=== PATIENT | female | born 1965 | race Two or more races ===

== ENCOUNTER → 2020-12-12 | Outpatient (CLI) | payer BC ==
[2020-04-14 13:21] VITALS: BP 137/57
[~2020-12-12] MED LIST: ASPI-630 PO; CALC-77 PO; CRESTOR40 MG PO; FLAX10003 PO; HYDR-2145 PO; HYDR12.58 PO; LACT1CAP6 PO; LOSA-73 PO; NIAC500T PO; OMEG500C PO; PRAS10TA9 PO; SIMV40TA18 PO
--- NOTE | 2020-12-12 09:18 | RAD ---
Carotid artery duplex ultrasound study without comparison for carotid bruit. Technique an findings: Real-time grayscale and color spectral Doppler evaluation of the carotid arter ies is performed. The bilateral common carotid and internal carotid arteries are widely patent with n o significant atherosclerosis. External carotid arteries are likewise patent as are the vertebral art eries. There is antegrade flow within the vertebral arteries. Peak systolic velocity of the distal ri ght common carotid artery is 89 cm/s, and peak systolic velocity of the right internal carotid artery is 94 cm/s, constituting a ratio 1.1. Highest end-diastolic velocity of the right internal carotid a rteries distally at 34 cm/s. Peak systolic velocity of the left common carotid artery distally is 96 cm/s, and of the left internal carotid artery 82 cm/s, constituting a ratio 0.8. Highest end-diastoli c velocity of the left internal carotid arteries distally within the vessel and measures 36 cm/s. IMPRESSION: 1. Normal carotid ultrasound with no evidence of stenosis or significant atherosclerosis. Stenosis calculations for CT, MR and conventional angiography are based upon measurement of the dista l ICA diameter in accordance with the NASCET methodology. Stenosis calculations for carotid ultrasou nd studies are derived from validated velocity criteria which are known to correlate with the NASCET methodology. Electronically signed by: Sebastian Holland MD (12/12/2020 9:15 AM) [id number]
== END ==
LOC: US 08:38
PROVIDERS: ATTEND Internal Medicine Cardiovascular Disease
DX: R09.89 Other specified symptoms and signs involving the circulatory and respiratory systems (principal)
CPT/HCPCS: 93880